=== PATIENT | male | born 1950 | race Caucasian/White ===

== ENCOUNTER 2018-06-08 00:44 | Outpatient (CLI) | payer MEDICARE, BC, SELFPAY ==
--- NOTE | 2018-06-08 09:42 | DI.RAD_ITS ---
SYMPTOMS/DIAGNOSIS: COUGH, R05 PA AND LATERAL CHEST: The heart is normal in size. The lungs are clear. The mediastinal structures and pleura appear intact. CONCLUSION: Normal chest. No evidence of acute cardiopulmonary disease.
== END 2018-06-08 01:04 ==
PROVIDERS: PCP Family Medicine; Visit Provider Family Medicine
DX: R05 Cough (principal)
CPT/HCPCS: 71046

== ENCOUNTER 2019-04-16 00:56 | Outpatient (CLI) | payer MEDICARE, BC, SELFPAY ==
--- NOTE | 2019-04-16 14:54 | DI.US_ITS ---
EXAM: US CAROTID CLINICAL HISTORY: CAROTID ARTERY CALCIFICATION I65.29 OCCLUSION AND STENOSIS OF CAROTID ARTERY TECHNIQUE: Ultrasound carotids performed using grayscale, color-flow, and spectral Doppler imaging. COMPARISON: No exams were available for comparison FINDINGS: RIGHT CAROTID ARTERY: Plaque: Minimal. Velocity elevation: No hemodynamically significant velocity elevations are present. LEFT CAROTID ARTERY: Plaque: Minimal. Velocity elevation: No hemodynamically significant velocity elevations are present. VERTEBRAL ARTERIES: Antegrade flow. IMPRESSION: No evidence for hemodynamically significant carotid stenosis. Criteria for Carotid Stenosis: Normal: ICA PSV <125 cm/s no plaque or intimal thickening is visible. <50% stenosis: ICA PSV <125 cm/s and plaque or intimal thickening is visible. 50-69% stenosis: ICA PSV is 125-250 cm/s and plaque is visible. >70% stenosis to near occlusion: ICA PSV >250 cm/s with visible plaque and luminal narrowing.
== END 2019-04-16 01:16 ==
PROVIDERS: PCP Family Medicine; Visit Provider Family Medicine
DX: I65.23 Occlusion and stenosis of bilateral carotid arteries (principal)
CPT/HCPCS: 93880

== ENCOUNTER 2021-01-14 09:51 | Outpatient (CLI) | payer MEDICARE, BC, SELFPAY ==
[2021-01-14 12:21] LABS: Abs Immature Grans 0.02 10^3/uL (0.0-0.06); Absolute Basophil Count 0.03 10^3/uL (0.0-0.2); Absolute Eosinophil Count 0.22 10^3/uL (0.0-0.7); Absolute Lymphocyte Count 1.59 10^3/uL (1.2-3.4); Absolute Monocyte Count 0.39 10^3/uL (0.1-0.8); Absolute Neutrophil Count 2.82 10^3/uL (1.2-6.7); Basophils % 0.6; Eosinophils % 4.3; HCT 45.4 % (40.0-50.0); HGB 15.1 g/dL (13.5-17.5); Immature Grans % 0.4; Lymphocytes % 31.4; MCHC 33.3 % (32.0-36.0); MCV 90.1 fL (80-95); MPV 10.1 fL (8.0-11.0); Monocytes % 7.7; Neutrophils % 55.6; Nucleated RBC 0 %; Platelet Count 164 10^3/uL (130-400); RBC 5.04 10^6/uL (4.36-5.78); RDW-SD 42.8 fL; WBC 5.07 10^3/uL (4.4-10.8)
[2021-01-14 12:28] LABS: ESR < 1 mm/hr (0-20)
[2021-01-14 12:40] LABS: ALT 24 U/L (16-63); AST 19 U/L (15-37); Albumin 3.5 g/dL (3.4-5.0); Alkaline Phosphatase 92 U/L (46-116); Anion Gap 5.7 mmol/L (3-11); BUN 13 mg/dL (7-18); Bilirubin, Total 0.7 mg/dL (0.2-1.0); CO2 30.3 mmol/L (21.0-32.0); Calcium 8.8 mg/dL (8.5-10.1); Chloride 106 mmol/L (98-107); Glucose 108 mg/dL (74-106); Potassium 4.4 mmol/L (3.5-5.1); Sodium 142 mmol/L (136-145); Total Protein 6.6 g/dL (6.4-8.2)
== END 2021-01-14 09:52 | disposition home or self-care (01) ==
LOC: LOS 09:52
PROVIDERS: PCP Family Medicine; Visit Provider Family Medicine
DX: R10.9 Unspecified abdominal pain (principal); R10.2 Pelvic and perineal pain; R19.8 Other specified symptoms and signs involving the digestive system and abdomen; G89.29 Other chronic pain
CPT/HCPCS: 36415; 80053; 85652; 85025

== ENCOUNTER 2021-01-22 01:30 | Outpatient (CLI) | payer MEDICARE, BC, SELFPAY ==
--- NOTE | 2021-01-22 08:15 | DI.CT_ITS ---
Exam(s) CT ABDOMEN PELVIS W EXAM: CT ABDOMEN PELVIS W CLINICAL HISTORY: PELVIC PAIN,BURNING,H/O DIVERTICULO,R10.2,G89.29. TECHNIQUE: Imaging Protocol: Axial computed tomography images with coronal and sagittal reformatted images were created and reviewed CONTRAST MATERIAL: Intravenous: Omnipaque 100cc Oral: Yes COMPARISON: No exams were available for comparison FINDINGS: VISUALIZED LUNG BASES: No nodules nor pleural effusions evident. Mild benign-appearing increased mar kings left lung base. ABDOMEN: There is no ascites. Small sliding-type hiatal hernia. LIVER: There are no focal hepatic lesions evident . GALLBLADDER/BILIARY: No obvious gallbladder pathology. CBD is not dilated. PANCREAS: There is a solitary small 2 millimeter parenchymal calcification in the pancreas in the ant erior body. No associated mass. No dilatation of the pancreatic duct. SPLEEN: Spleen is not enlarged. No obvious intrasplenic lesions. Splenic and portal veins are paten t. ADRENALS: There are no significant adrenal masses. KIDNEYS:There are parapelvic cysts in left kidney. No other focal renal findings. No hydronephrosis . No hydroureter. No solid renal masses. . ABDOMINAL AORTA: Lower abdominal aorta is atherosclerotic but not significantly dilated. Common brett c arteries exhibit mild calcified plaque but no tight stenosis nor aneurysms. LYMPH NODES:There is no retroperitineal nor paraaortic adenopathy. ABDOMINAL WALL: No evidence of significant anterior abdominal wall hernia. GI: No bowel obstruction. No free air. No abscess PELVIS: GI: No evidence of appendicitis.Diverticulosis. No acute diverticulitis. LYMPH NODES: There is no intrapelvic nor inguinal adenopathy. REPRODUCTIVE: Prostate gland is grossly enlarged. URINARY BLADDER: Not distended. No obvious mass nor calculi. OSSEOUS: No significant osseous lesions. IMPRESSION: 1. Prostate gland is grossly enlarged. The urinary bladder is not distended. There are no calculi n or obvious masses in the urinary bladder. 2. No hydronephrosis. Parapelvic cysts are incidentally noted in the left kidney RADIATION DOSE DELIVERED: 817.71mGy.cm Total DLP DATA REPOSITORY: All CT scans at this facility are submitted to the National Radiology Data Registry (NRDR) Dose Index Registry (DIR) with the [employer] (ACR). RADIATION OPTIMIZATION: All CT scans at this facility use at least one of these dose optimization te chniques: automated exposure control; mA and/or kV adjustment per patient size (includes targeted exa ms where dose is matched to clinical indication); or iterative reconstruction.
[2021-01-22] MEDS: Omnipaque 350 MG/ML 100 ML BTL IJ (14:52)
== END 2021-01-22 01:50 ==
PROVIDERS: PCP Family Medicine; Visit Provider Family Medicine
DX: G89.29 Other chronic pain (principal); R10.2 Pelvic and perineal pain; N40.0 Benign prostatic hyperplasia without lower urinary tract symptoms; N28.1 Cyst of kidney, acquired
CPT/HCPCS: 74177; J3490

== ENCOUNTER 2022-08-21 10:55 | Emergency (ER) | payer MEDICARE, BC, SELFPAY ==
--- NOTE | 2022-08-21 11:00 | RT.EKG_ITS ---
APPROVED REPORT Exam: Resting ECG Reason for Exam: stroke like symptoms Patient Location: E HR:65 bpm ECG Measurements Heart Rate 65 AXIS ND 170 P 55 QRSd 98 QRS 73 QT 379 T 37 QTc 393 Conclusion Sinus rhythm...normal P axis, V-rate 60- 99
[2022-08-21 11:01] VITALS: BP 138/72; PULSE 68; RESP 18; TEMP 36.6; O2SAT 98
--- NOTE | 2022-08-21 11:15 | DI.CT_ITS ---
Exam(s) CT BRAIN NECK CTA EXAM: CT BRAIN NECK CTA CLINICAL HISTORY: double vision, headache. TECHNIQUE: Imaging Protocol: Axial CT angiography was performed with multi-slice acquisition and mu lti-planar and/or 3D reconstructions. CONTRAST MATERIAL: Intravenous: Omnipaque 350 contrast volume:160 mL COMPARISON: CT CT ABDOMEN PELVIS W from 01/22/2021 FINDINGS: CT Head W/O and W: Ventricles and Extra axial spaces: Normal in size and morphology for the patient's age. Hemorrhage: None. Cerebral parenchyma: No acute territorial infarct. Midline shift: None. Brainstem/Cerebellum: Normal. Calvarium: Normal. Visualized Paranasal sinuses/Mastoids: There is mild mucosal thickening in the paranasal sinuses. No air-fluid levels are seen. Soft Tissues: Unremarkable. Enhancement: Unremarkable. CTA Neck W: Common Carotid: Right: No dissection, occlusion or significant stenosis. Left: No dissection, occlusion or significant stenosis. Mild calcification of the distal left common carotid artery. External Carotid: Right: No occlusion or significant stenosis. Left: No occlusion or significant stenosis. Internal Carotid: Right: No dissection, occlusion or significant stenosis. Left: No dissection, occlusion or significant stenosis. Vertebral Artery: Right: No dissection, occlusion or significant stenosis. Left: No dissection, occlusion or significant stenosis. Lung Apices: Normal. Bones: Within normal limits for the patient's age. Soft Tissues: Normal. Thyroid gland: Unremarkable. CTA Brain W: Internal Carotid Arteries: There is mild calcific plaque. No occlusion or significant stenosis. Anterior Cerebral Arteries: Right: No aneurysm, occlusion or significant stenosis. Left: No aneurysm, occlusion or significant stenosis. Middle Cerebral Arteries: Right: No aneurysm, occlusion or significant stenosis. Left: No aneurysm, occlusion or significant stenosis. Posterior Cerebral Arteries: The posterior cerebral arteries arise predominantly from the posterior c ommunicating arteries which is a normal variant. Right: No aneurysm, occlusion or significant stenosis. Left: No aneurysm, occlusion or significant stenosis. Vertebral Arteries: Right: No aneurysm, occlusion or significant stenosis. Left: No aneurysm, occlusion or significant stenosis. Basilar Artery: No aneurysm, occlusion or significant stenosis. IMPRESSION: 1. No large vessel occlusion or significant stenosis on the CT angiography of the head. 2. No acute intracranial process. 3. No occlusion or significant stenosis on the CT angiography of the neck. RADIATION DOSE DELIVERED: 2,211.82mGy.cm Total DLP DATA REPOSITORY: All CT scans at this facility are submitted to the National Radiology Data Registry (NRDR) Dose Index Registry (DIR) with the [employer] (ACR). RADIATION OPTIMIZATION: All CT scans at this facility use at least one of these dose optimization te chniques: automated exposure control; mA and/or kV adjustment per patient size (includes targeted exa ms where dose is matched to clinical indication); or iterative reconstruction.
[2022-08-21 11:23] LABS: Abs Immature Grans 0.02 10^3/uL (0.0-0.06); Absolute Basophil Count 0.04 10^3/uL (0.0-0.2); Absolute Eosinophil Count 0.26 10^3/uL (0.0-0.7); Absolute Lymphocyte Count 1.75 10^3/uL (1.2-3.4); Absolute Monocyte Count 0.39 10^3/uL (0.1-0.8); Absolute Neutrophil Count 2.67 10^3/uL (1.2-6.7); Basophils % 0.8; Eosinophils % 5.1; HGB 15.8 g/dL (13.5-17.5); Immature Grans % 0.4; Lymphocytes % 34.1; MCH 30.7 pg (27.0-33.0); MCHC 34.3 % (32.0-36.0); MCV 89 fL (80-95); MPV 9.4 fL (8.0-11.0); Monocytes % 7.6; Platelet Count 165 10^3/uL (130-400); RBC 5.15 10^6/uL (4.36-5.78); RDW 12.8 % (11.8-14.1); RDW-SD 41.8 fL; WBC 5.13 10^3/uL (4.4-10.8)
--- NOTE | 2022-08-21 11:23 | ED.GENADUL_ITS ---
Discharge Plan Disposition Patient Disposition: Home Condition: Stable Discharge Details Clinical Impression: Double vision Primary Care Provider: Liliya Simon ED Provider: Yousuf Grigsby Home Meds and New Rx's Prescriptions: Continued multivitamin Tablet 1 tab PO DAILY Discharge Instructions Additional Instructions: Your exam, imaging and blood work did not show concerning findings at this time you can take 81mg aspirin daily until you follow up with your primary care provider if you feel more ill, have weakness, slurred speech or recurrent changes in vision return to the emergency department Medical Decision Making 72 yo male who has no significant chronic medical problems who is not on any medication, comes in with cc of double vision. Him and his were talking and he noticed his vision seemed to be double, he is not sure if the double vision resolved when he closed one eye or not. He states it lasted a few minutes then resolved. denies any slurred speech or other abnormalities during this episode. HE is caox4 and has a normal gait, nih of 0, no deficits on exam. He has noted intermittent mild headaches on the superior portion of his head for a few months. HE has no pain now, no temporal artery tenderness. Unclear if this was monocular or binocular diplopia or not, will obtain ct/cta of the braine/neck, cbc, cmp, ekg and troponin and monitor. labs and imaging unremarkable, he remains asymptomatic at this time. Discussed results with pt and given reassuring workup and asymptomatic now feel he is stable for d/c and can f/u with his pcp. Unclear tia vs intrinsic eye problem, return precautions given Differential Diagnosis Differential Diagnosis: diplopia, tia, cva Imaging Data Radiologic Study: Attestation: I personally reviewed and interpreted this imaging study as follows: Imaging: CT Scan Radiologist's impression: IMPRESSION: No acute findings. Mild atherosclerotic disease but no high-grade stenosis or large vessel occlusion. Lab Data Lab results reviewed: Yes I reviewed the patient's lab results. ECG Data Attestation: I personally reviewed and interpreted this ECG (s) as follows: Prior ECG tracings: not available for review Interpretation: sinus rhythm, rate of 65, pr 170, no ischemic findings HPI General Mode of arrival: ambulatory . Date/Time Provider Initiated Documentation: 08/21/22 11:08 . Limitations to Documentation: no limitations . Information obtained by: patient . History of Present Illness 72 year old M presents to the emergency department with the chief complaint of double vision, described as mild, Patient started experiencing this hour(s) (1) and it has been now resolved. No relieving factors improve symptom(s), No exacerbating factors reported . Patient notes headaches. Patient did receive the following treatments prior to arrival, none Related Data Home Medications Medication Instructions Recorded Confirmed multivitamin 1 tab PO DAILY 08/21/22 08/21/22 Allergies Allergy/AdvReac Type Severity Reaction Status Date / Time No Known Allergies Allergy Verified 08/21/22 10:47 General Stated Complaint: CVA/TIA KATARINA: 3 Review of Systems All systems reviewed & are unremarkable except as noted in HPI and below Constitutional Constitutional: Denies chills, Denies fever(s) and Denies weakness Eyes Eyes: Denies loss of vision Cardiovascular Cardiovascular: Denies chest pain and Denies dyspnea Respiratory Respiratory: Denies cough and Denies dyspnea Gastrointestinal Gastrointestinal: Denies abdominal pain, Denies nausea and Denies vomiting Genitourinary Genitourinary: Denies dysuria Neurologic Neurologic: Denies loss of vision and Denies weakness PFSH All Active Problems (Updated 08/21/22 @ 13:50 by Yousuf Grigsby MD) Double vision (Acute) Chronic pelvic pain in male (Acute) Weight loss (Acute) DNR (do not resuscitate) (Acute) Physician orders for life-sustaining treatment (POLST) form indicates patient wish for [id number] status (Acute) Cough (Acute) Diverticulosis of colon without diverticulitis (Chronic) 2005 COLONOSCOPY Raised prostate specific antigen (Chronic 09/15/10) [facility] [place] Shoulder pain (Chronic) LEFT SHOULDER IMPINGEMENT SYNDROME Medical History Unspecified cataract (12/29/12) Surgical History Extraction of cataract (12/14/02) 12/14/02 09/16/16;left Family History Mother , age 68 Parkinson disease Father , age 70 Diabetes Heart disease CHF Hyperlipidemia Brother , age 70 Stroke FOLLOWING HERNIA SUGERY Lung cancer Maternal Grandfather Heart disease Paternal Grandfather Heart disease Maternal Grandmother Brain cancer Paternal Grandmother No problems noted. Son No problems noted. Son No problems noted. Social History Smoking/Tobacco Use Status: Former Tobacco Use tobacco type: pipe Quit Date: 05/16/88 Tobacco: How many years used: 10 Second Hand Exposure: Yes Smoking risk assessment performed?: Yes Alcohol Intake: current Alcohol Intake frequency: a few times a week Alcohol type: beer and wine Drug use: Never Substance use type: does not use Caregiver/Support person: No Household members: spouse Housing: house Communication Needs: None Do you need help understanding health information?: Never Pets and animals: Yes Pets and animals: cat(s) Sexually active: No Do you think of yourself as: straight/heterosexual Current gender identity: male What is your relationship status?: How often do you talk on the phone with friends or family?: decline to answer How often do you get together with friends or relatives?: decline to answer How often do you attend sikh or adventist services?: decline to answer Do you belong to any clubs or organized social groups?: decline to answer Panel score (0-1 are the most socially isolated patients): 1 What type of physical activity do you participate in: walking Duration: 45-60 minutes/day Frequency: 3-4 times per week Jael/Yazidi: No preference Special jael needs: No Seatbelt use: always Helmet use: No Drive intox or ride w/intox ready mix truck driver: No Do you feel safe at home: Yes Do you feel safe in your relationship?: Yes Exam Const General: no acute distress Orientation: alert [facility] Head: normal to inspection Ears: external ears normal General nose exam: external nose normal Mouth: moist mucous membranes Eyes General: appearance normal, both eyes and all related structures Visual Zhou: normal visual zhou by confrontation Alignment and Position: alignment normal and position normal Periorbital: periorbital findings normal Eyelids: eyelids normal Conjunctivae: conjunctivae normal Sclera: sclerae normal Pupils: PERRL EOM: EOM intact bilaterally Neck Neck: normal visual inspection Resp Effort & Inspection: normal respiratory effort and able to speak in complete sentences Auscultation: clear to auscultation bilaterally Cardio Jugular venous pressure: no JVD Rate: regular rate Heart Sounds: no murmurs Skin General skin exam: no rashes or lesions noted Neuro General: patient alert and patient oriented x3 Extrem General: normal to inspection Psych Mental Status: mental status grossly normal Course Vital Signs Vital signs: Vital Signs Temperature 36.6 C 08/21/22 11:01 Pulse 68 08/21/22 11:01 Respiratory Rate 18 08/21/22 11:01 Blood Pressure 138/72 08/21/22 11:01 Pulse Oximetry 98 08/21/22 11:01 Temperature 36.6 C 08/21/22 11:01 Temperature Source Oral 08/21/22 11:01 Pulse 68 08/21/22 11:01 Respiratory Rate 18 08/21/22 11:01 Respiratory Effort Normal, Non-Labored, Short of Breath 08/21/22 11:11 Blood Pressure 138/72 08/21/22 11:01 Blood Pressure Position Supine 08/21/22 11:01 Pulse Oximetry 98 08/21/22 11:01 Oxygen Delivery Method Room Air 08/21/22 11:01 Oxygen Flow Rate 0 08/21/22 11:01 Pain Level 0 08/21/22 11:01 PAWSS Have you Been Recently Intoxicated or Drunk Within the Last 30 days?: No Have you Ever Experienced Previous Episodes of Alcohol Withdrawal?: No Have you ever Experienced Withdrawal Seizures?: No Have you ever Experienced Delirium Tremens(DT)s?: No Have you ever undergone Alcohol Rehabilitation Treatment (i.e, inpt ot outpatient treatment programs)?: No Have you ever Experienced Blackouts?: No Have you ever Combined Alcohol with other Downers within the last 90 days?: No Have you ever Combined Alcohol with any other Substance of Abuse during the last 90 days?: No Result: 0
[2022-08-21 11:38] LABS: ESR 3 mm/hr (0-20)
[2022-08-21 11:43] LABS: ALT 31 U/L (16-63); AST 24 U/L (15-37); Albumin 3.7 g/dL (3.4-5.0); Alkaline Phosphatase 87 U/L (46-116); Anion Gap 6.7 mmol/L (3-11); BUN 14 mg/dL (7-18); Bilirubin, Total 0.5 mg/dL (0.2-1.0); CO2 30.3 mmol/L (21.0-32.0); CREATININE 1.1 mg/dL (0.70-1.30); Calcium 9.3 mg/dL (8.5-10.1); Chloride 103 mmol/L (98-107); Estimated GFR 70.44 (mL/min/1.73m2); Glucose 102 mg/dL (74-106); Sodium 140 mmol/L (136-145); Total Protein 7.1 g/dL (6.4-8.2); Troponin I < 50 ng/L (<or=60)
[2022-08-21 12:03] LABS: Bilirubin Negative (Negative); Blood Negative (Negative); Clarity Clear (Clear); Glucose Negative (Negative); Ketones Negative (Negative); Leukocyte Esterase Negative (Negative); Nitrite Negative (Negative); Urobilinogen 0.2 mg/dL (Up to 0.2)
[2022-08-21] MEDS: Omnipaque 350 MG/ML 500 ML BTL-Imaging package 165 ML IJ (12:21)
--- NOTE | 2022-08-21 13:43 | DI.VRAD_ITS ---
PROCEDURE INFORMATION: Exam: CTA Head With Contrast, Arteriography Exam date and time: 08/21/2022 12:06 PM Age: 72 years old Clinical indication: Headache; Prior surgery TECHNIQUE: Imaging protocol: Computed tomographic angiography of the head with contrast. Exam focused on the arteries. 3D rendering (Not supervised by radiologist): MIP and/or 3D reconstructed images were created by the technologist. COMPARISON: No relevant prior studies available. FINDINGS: Evaluation is somewhat degraded by venous contamination. ANTERIOR CIRCULATION: Right internal carotid artery: Intracranial segment is patent with no significant stenosis. No aneurysm. Mild plaque. Ophthalmic artery identified. PCOM visualized Right middle cerebral artery: No occlusion or significant stenosis. No aneurysm. Right anterior cerebral artery: No occlusion or significant stenosis. No aneurysm. Left internal carotid artery: Intracranial segment is patent with no significant stenosis. No aneurysm. Mild plaque. Ophthalmic artery identified. Posterior communicating artery visualized Left middle cerebral artery: No occlusion or significant stenosis. No aneurysm. Left anterior cerebral artery: No occlusion or significant stenosis. No aneurysm. POSTERIOR CIRCULATION: Right vertebral artery: No occlusion or significant stenosis. No aneurysm. PICA visualized Left vertebral artery: No occlusion or significant stenosis. No aneurysm. PICA visualized Basilar artery: No occlusion or significant stenosis. No aneurysm. Basilar artery is small presumably congenital as there are prominent posterior communicating arteries identified bilaterally. Superior cerebellar arteries are identified. Right posterior cerebral artery: No occlusion or significant stenosis. No aneurysm. Small hypoplastic P1 prominent PCOM Left posterior cerebral artery: No occlusion or significant stenosis. No aneurysm. Small P1 in prominent PCOM There are no findings to suggest acute dural sinus thrombosis Brain: No evidence of hemorrhage, mass or shift. No large cortical or major vascular territory infarct. No abnormal enhancement. No abnormal extra-axial collections. Cerebral ventricles: No significant ventricular enlargement. Bones/joints: No acute bony abnormality Soft tissues: Unremarkable. Patient has had prior lens replacement. IMPRESSION: No acute findings. Mild atherosclerotic disease but no high-grade stenosis or large vessel occlusion. PROCEDURE INFORMATION: Exam: CTA Neck With Contrast Exam date and time: 08/21/2022 12:06 PM Age: 72 years old Clinical indication: Headache; Prior surgery TECHNIQUE: Imaging protocol: Computed tomographic angiography of the neck with contrast. 3D rendering (Not supervised by radiologist): MIP and/or 3D reconstructed images were created by the technologist. COMPARISON: US CAROTID 04/16/2019 2:54 PM FINDINGS: CT angiography of the aortic arch demonstrates that the origins of the brachiocephalic left common carotid artery left subclavian artery are patent. There is mild plaque particularly involving the subclavian arteries but flow is seen distally in both subclavian arteries. Right common carotid artery: No stenosis. No dissection or occlusion. Right internal carotid artery: No stenosis of the extracranial segment. No dissection or occlusion. Mild plaque involving the proximal right ICA. Right external carotid artery: No occlusion or stenosis of the origin. Left common carotid artery: No stenosis. No dissection or occlusion. Mild plaque Left internal carotid artery: No stenosis of the extracranial segment. No dissection or occlusion. Mild plaque proximally Left external carotid artery: No occlusion or stenosis of the origin. Right vertebral artery: No stenosis. No dissection or occlusion. Left vertebral artery: No stenosis. No dissection or occlusion. Soft tissues: No evidence of a discrete soft tissue mass in the neck. No significant adenopathy No significant airspace consolidation at the lung apices. Bones/joints: Cervical spondylosis, degenerative disc disease. There is multilevel disc space narrowing. There are disc osteophyte complexes spondylitic changes of the endplates, uncovertebral and facet arthropathy. There is no acute bony abnormality.. IMPRESSION: No significant extracranial vascular abnormality Cervical spondylosis, degenerative disc disease REFERENCES: NASCET CRITERIA. The degree of stenosis in the cervical segment of the internal carotid artery is based on NASCET criteria. Normal is no stenosis. Mild is less than 50% stenosis. Moderate is 50-69% stenosis. Severe is 70% to 99% stenosis. Total occlusion is no detectable patent lumen. Dictated and Authenticated by: Li Sheldon MD. Ordering:NESHA To MD
[2022-08-21 14:10] VITALS: BP 133/63; PULSE 76; RESP 16; O2SAT 97
== END 2022-08-21 14:09 | disposition home or self-care (01) ==
PROVIDERS: Emergency Provider Emergency Medicine; PCP Family Medicine
DX: H53.2 Diplopia (principal)
CPT/HCPCS: 36415; 36416; 70496; 70498; 80053; 82962; 85652; 93005; 99285; 81003; 83735; 84484; 85025; 93010

== ENCOUNTER 2023-08-24 05:35 | Outpatient (CLI) | payer MEDICARE, BC, SELFPAY ==
[2023-08-24 13:42] LABS: HCT 44.9 % (40.0-50.0); HGB 15.3 g/dL (13.5-17.5); MCH 30.8 pg (27.0-33.0); MCHC 34.1 % (32.0-36.0); MCV 91 fL (80-95); MPV 9.6 fL (8.0-11.0); Platelet Count 175 10^3/uL (130-400); RBC 4.96 10^6/uL (4.36-5.78); RDW 13.1 % (11.8-14.1); RDW-SD 43.9 fL; WBC 5.44 10^3/uL (4.4-10.8)
[2023-08-24 14:28] LABS: Hemoglobin A1C 5.4 % (<5.7)
[2023-08-24 14:36] LABS: ALT 26 U/L (16-63); AST 18 U/L (15-37); Albumin 3.5 g/dL (3.4-5.0); Alkaline Phosphatase 78 U/L (46-116); Anion Gap 6.9 mmol/L (3-11); BUN 15 mg/dL (7-18); Bilirubin, Total 0.5 mg/dL (0.2-1.0); CO2 30.1 mmol/L (21.0-32.0); CREATININE 1.1 mg/dL (0.70-1.30); Calcium 9.2 mg/dL (8.5-10.1); Chloride 107 mmol/L (98-107); Estimated GFR 70.01 (mL/min/1.73m2); Glucose 91 mg/dL (74-106); Potassium 4.4 mmol/L (3.5-5.1); Sodium 144 mmol/L (136-145); TSH (W/Ref FT4) 2.74 uIU/mL (0.36-3.74); Total Protein 6.8 g/dL (6.4-8.2); Vitamin B12 231 pg/mL (193-986)
== END 2023-08-24 05:36 | disposition home or self-care (01) ==
LOC: LBO 05:35
PROVIDERS: PCP Family Medicine; Visit Provider Family Medicine
DX: R41.3 Other amnesia (principal); D64.9 Anemia, unspecified; E11.9 Type 2 diabetes mellitus without complications; E03.9 Hypothyroidism, unspecified; I10 Essential (primary) hypertension
CPT/HCPCS: 36415; 80053; 85027; 82607; 83036; 84443

== ENCOUNTER 2024-03-30 01:58 | Outpatient (CLI) | payer MEDICARE, BC, SELFPAY ==
[2024-03-30 13:00] LABS: Vitamin B12 615 pg/mL (193-986)
== END 2024-03-30 01:59 | disposition home or self-care (01) ==
LOC: LBO 01:59
PROVIDERS: PCP Family Medicine; Visit Provider Family Medicine
DX: R41.3 Other amnesia (principal)
CPT/HCPCS: 36415; 82607

== ENCOUNTER → 2025-04-10 01:10 | Outpatient (CLI) | payer MEDICARE, BC, SELFPAY ==
--- NOTE | 2025-04-10 10:00 | DI.US_ITS ---
Exam(s) US CAROTID EXAM: US CAROTID CLINICAL HISTORY: intermittent vision changes,H53.9. TECHNIQUE: Ultrasound carotids performed using grayscale, color-flow, and spectral Doppler imaging. COMPARISON: US US CAROTID from 04/16/2019 FINDINGS: RIGHT CAROTID ARTERY: Plaque: There is mild calcific plaque in the common carotid artery and carotid bulb. Velocity elevation: None. LEFT CAROTID ARTERY: Plaque: There is mild calcific plaque seen in the common carotid artery and the carotid bulb. Velocity elevation: None. VERTEBRAL ARTERIES: Antegrade flow. Measurements: R Bulb: 35.9cm/s PS / 10.6cm/s ED R CCA: 53.4cm/s PS / 11.9cm/s ED R ECA: 119cm/s PS / 7.7cm/s ED R ICA Prox: 62.7cm/s PS / 11.3cm/s ED R ICA Mid: 95.3cm/s PS / 24.1cm/s ED R ICA Distal: 93.5cm/s PS /22.3cm/s ED R Vert: 57.7cm/s PS / 10.6cm/s ED R SVR: 1.8 R DVR: 2 L Bulb: 49.4cm/s PS / 7.9cm/s ED L CCA: 73.4cm/s PS / 14.4cm/s ED L ECA: 111.2cm/s PS / 8.9cm/s ED L ICA Prox: 94.7cm/s PS / 29cm/s ED L ICA Mid: 96.6cm/s PS / 21.7cm/s ED L ICA Distal: 91.1cm/s PS / 29cm/s ED L Vert: 46.1cm/s PS / 14cm/s ED L SVR: 1.3 L DVR: 1.5 IMPRESSION: No evidence for hemodynamically significant carotid stenosis. Criteria for Carotid Stenosis: Normal: ICA PSV <125 cm/s no plaque or intimal thickening is visible. <50% stenosis: ICA PSV <125 cm/s and plaque or intimal thickening is visible. 50-69% stenosis: ICA PSV is 125-250 cm/s and plaque is visible. >70% stenosis to near occlusion: ICA PSV >250 cm/s with visible plaque and luminal narrowing. DATA REPOSITORY:
--- NOTE | 2025-04-10 13:30 | DI.US_ITS ---
APPROVED REPORT EXAM: Comprehensive 2D, Doppler, and color-flow Echocardiogram Patient Location: Out-Patient Director [facility]: Eleni Faust RDCS ([facility]) Indications: New bilateral edema Other Information Study Quality: Good Conclusion Normal left ventricular wall thickness and chamber size. Ejection fraction is 60%. Wall motion is normal Normal right ventricular size and function Both atria are normal in size There are no structural valvular abnormalities Mild mitral regurgitation Trace to mild tricuspid regurgitation. Estimated right ventricular systolic pressure is 25 mmHg Wall motion Left Ventricle The left ventricle is normal size. The left ventricular systolic function is normal. The left ventricular ejection fraction is within the normal range. There is normal left ventricular wall thickness. There is normal LV segmental wall motion. There is no ventricular septal defect visualized. LVEF is 60%. Right Ventricle The right ventricle is normal size. The right ventricular systolic function is normal. Atria The left atrium size is normal. The right atrium size is normal. The interatrial septum is intact with no evidence for an atrial septal defect. Aortic Valve The aortic valve is normal in structure. Aortic valve is trileaflet. There is no aortic valvular stenosis. No aortic regurgitation is present. Mitral Valve The mitral valve is normal in structure. No evidence of mitral valve stenosis. Mild mitral regurgitation. Tricuspid Valve The tricuspid valve is normal in structure. There is no tricuspid valve stenosis. Trace to mild tricuspid regurgitation. The RVSP is 25.0_ mmHg. Pulmonic Valve The pulmonary valve is normal in structure. There is no pulmonic valvular stenosis. Trace pulmonic regurgitation. Great Vessels The aortic root is normal in size. The ascending aorta is normal in size. Aortic arch is normal in caliber. IVC is normal in size and collapses >50% with inspiration. Pericardium There is no pericardial effusion. 2D Dimensions IVSD d PLAX 0.90 cm M: 0.6-1.2 Ao Root d 2.94 cm M: 3.1 - 3.7 LVPW d PLAX 0.92 cm M: 0.6 - 1.2 Ao Asc Diam d 3.22 cm M: 2.6 - 3.4 LVID d PLAX 4.70 cm M: 4.2 - 5.8 LVDs 3.20 cm M: 2.5 - 4.0 LV EF Teichholz 59.8 % FS 31.79 % LV EDV (Teich) 100.9 mL LV ESV (Teich) 40.5 mL M-Mode TAPSE 2.91 cm (M/F) >1.7 Auto EF LV EDV A4C 106.3 mL LV EDV A2C 130.3 mL LV EDV BP 118.2 mL LV ESV A4C 44.6 mL LV ESV A2C 53.6 mL LV ESV BP 48.9 mL LVEF(%) A4C 58.0 % LVEF(%) A2C 58.9 % LVEF(%) BP 58.7 % LV SV A4C 61.7 ml LV SV A2C 76.7 ml LV SV BP 69.4 ml LV CO A4C 3.8 L/min LV CO A2C 4.9 L/min LV CO BP 4.3 L/min HR A4C 61.33 BPM HR A2C 63.27 BPM LV EDV Index (BP) LA Volume LA Length A4C 4.3 cm LA Length A2C 4.7 cm LA Area A4C s 12.89 cm2 LA Area A2C s 16.39 cm2 LA Vol A4C A-L 32.47 mL LA Vol A2C A-L 48.44 mL LA Vol Biplane A-L 41.3 mL LA Vol/BSA A4C A-L LA Vol/BSA A2C A-L LA Vol/BSA BP A-L 21.8 mL/m2 LA Vol A4C MOD 29.8 mL LA Vol A2C MOD 43.9 mL LA Vol BP MOD 37.6 mL RA Volume RA Area A4C 12.1 cm2 RA ESV A4C (A-L) 30.8mL RA Vol/BSA A4C A-L RA Length A4C 4.0 cm RA ESV A4C (MOD) 29.4mL LV Diastology MV E' medial 0.103 (>0.07 m/s) MV E Vmax 0.62 (0.4-1.3 m/s) MV E/E' MED 6.04 (<14) MV A Vmax 0.75 (0.4-1.3 m/s) MV E' lateral 0.129 (>0.1 m/s) E/A Ratio 0.8 MV E/E' LAT 4.82 (<14) MV E' Average 0.116 m/s MV E/E'(average) 5.36 Aortic Valve AoV Vmax 1.28 m/s LVOT Vmax 1.12 m/s AoV Peak Grad 6.5 mmHg LVOT Peak Grad 5.0 mmHg AoV Area (Vmax) 2.76 cm2 LVOT VTI 0.238 m AoV VTI 0.300 m LVOT Mean Grad 2.7 mmHg AoV Mean Henrik. 0.92 m/s LVOT SV 75.24 mL AoV Mean Grad 3.8 mmHg LVOT Diam s 2.00 cm AoV Area (VTI) 2.51 cm2 AV Regurg Peak Gr. 6.51 mmHg Velocity Ratio 0.88 Mitral Valve MV DT 236 (160-240 msec) MV Vmax TIPS 0.81 m/s MV Mean Grad 1.0 (<2mmHg) MV VTI 0.289 m Pulmonary Valve PV Vmax 1.06 (0.5-1.5 m/s) RVOT Vmax 0.87 m/s PV Peak Grad 4.5 mmHg RVOT Peak Gr. 3.0 mmHg PV Mean Henrik 0.65 m/s RVOT VTI 0.183 m PV Mean Grad 2.1 mmHg RVOT Mean Gr. 1.4 mmHg Tricuspid Valve RA Pressure 3.00 mmHg TR Vmax 2.35 m/s TV S' 0.14 m/s TR Peak Grad 22.0 mmHg RVSP (TR) 25.0 mmHg
== END ==
LOC: DI 01:10
PROVIDERS: PCP Family Medicine; Visit Provider Family Medicine
DX: H53.9 Unspecified visual disturbance (principal); R60.9 Edema, unspecified; I34.0 Nonrheumatic mitral (valve) insufficiency
CPT/HCPCS: 93306; 93880